=== PATIENT | male | born 1965 | race American Indian/Alaskan Native ===

== ENCOUNTER 2020-08-14 05:40 | Emergency (ER) | payer SELFPAY ==
[2020-08-14 06:09] VITALS: BP 176/137
[2020-08-14] MEDS ORDERED: predniSONE 20 MG TAB PO ONE (07:46)
--- NOTE | 2020-08-14 07:46 | Emergency Department Report ---
ED General Adult HPI - General Chief complaint: Extremity Injury, Lower Stated complaint: GOUT FLARE UP Time Seen by Provider: 08/14/20 07:39 Source: patient Mode of arrival: Ambulatory Limitations: Physical Limitation - History of Present Illness Initial comments: Patient is a 54-year-old male with history of gout who presents to emergency department for evaluation of dull constant left ankle pain and swelling x5 days consistent with previous episodes of gout. Patient states he began taking Indocin on Thursday after telemedicine evaluation with relief, however, pain has returned. Denies trauma, states that he has history of gout in his left ankle and this feels similar. Severity scale (0 -10): 6 - Related Data Previous Rx's Medication Instructions Recorded Last Taken Type predniSONE 10 mg PO .TAPER #21 tab 08/14/20 Unknown Rx Allergies Allergy/AdvReac Type Severity Reaction Status Date / Time No Known Allergies Allergy Unverified 08/14/20 06:09 ED Review of Systems ROS: Stated complaint: GOUT FLARE UP Other details as noted in HPI Comment: All other systems reviewed and negative ED Past Medical Hx - Past Medical History Previous Medical History?: Yes Hx Hypertension: Yes Additional medical history: gout - Medications Home Medications: Home Medications Medication Instructions Recorded Confirmed Last Taken Type predniSONE 10 mg PO .TAPER #21 tab 08/14/20 Unknown Rx ED Physical Exam - General General appearance: alert, in no apparent distress - Head Head exam: Present: atraumatic, normocephalic - Eye Eye exam: Present: normal appearance - ENT ENT exam: Present: mucous membranes moist - Neck Neck exam: Present: normal inspection - Respiratory Respiratory exam: Present: normal lung sounds bilaterally. Absent: respiratory distress - Cardiovascular Cardiovascular Exam: Present: regular rate, normal rhythm - GI/Abdominal GI/Abdominal exam: Present: soft, normal bowel sounds - Rectal Rectal exam: Present: deferred - Extremities Exam Extremities exam: Present: other (Mild swelling and tenderness to left lateral malleolus of left ankle) - Back Exam Back exam: Present: normal inspection - Neurological Exam Neurological exam: Present: alert, oriented X3 - Psychiatric Psychiatric exam: Present: normal affect, normal mood - Skin Skin exam: Present: warm, dry, intact, normal color. Absent: rash ED Course Vital Signs 08/14/20 06:07 Temperature 98.6 F Pulse Rate 88 Respiratory 19 Rate Blood Pressure 176/137 [Right] O2 Sat by Pulse 98 Oximetry - Reevaluation(s) Reevaluation #1: 08/14/20 08:16 Patient states his symptoms typically resolve with prednisone taper, requests the same. Patient given prednisone 60 mg p.o. x1 in the emergency department. Patient is offered crutches, declines. Patient otherwise advised to keep extremity elevated and iced as tolerated. ED Medical Decision Making - Lab Data Vital Signs 08/14/20 06:07 Temperature 98.6 F Pulse Rate 88 Respiratory 19 Rate Blood Pressure 176/137 [Right] O2 Sat by Pulse 98 Oximetry Critical care attestation.: If time is entered above; I have spent that time in minutes in the direct care of this critically ill patient, excluding procedure time. ED Disposition Clinical Impression: Gout of left ankle Disposition: DC-01 TO HOME OR SELFCARE Is pt being admited?: No Condition: Stable Instructions: Low-Purine Eating Plan Additional Instructions: Follow-up with primary care doctor 1 to 2 days for reevaluation. Return to the emergency department for worsening symptoms. Prescriptions: predniSONE 10 mg PO .TAPER #21 tab Referrals: PRIMARY CARE [Primary Care Provider] - 3-5 Days
== END 2020-08-14 11:11 | disposition home or self-care (01) ==
LOC: ED 05:40
DX: M25.572 Pain in left ankle and joints of left foot (principal); M10.9 Gout, unspecified; I10 Essential (primary) hypertension; Z79.899 Other long term (current) drug therapy
CPT/HCPCS: 99282